=== PATIENT | female | born 1930 | race Caucasian/White ===

== ENCOUNTER 2017-07-01 10:24 | Emergency (ER) | payer OTHER ==
[~2017-07-01] VITALS: Ht 121.9 cm; Wt 39.0 kg
[~2017-07-01 10:24] MED LIST: BIOT50005 PO; CALCCHW9 CHEW; FERR1TAB7 PO; FURO40TA PO; GLUC1CAP9 PO; OCUVTAB4 PO; POTA-163 PO; PROB1CAP PO; SALM1000 PO; SPIRCAP INH; VITA10003 PO; VITA10007 PO; VITA400C2 PO; VITACAP7 PO; [UNRECOGNIZED DRUG - CODE] PO
[2017-07-01 10:32] VITALS: BP 133/60; PULSE 71; RESP 16; TEMP 97.8; O2SAT 96
[2017-07-01] MEDS ORDERED: SPIRCAP INH (11:45)
--- NOTE | 2017-07-01 11:51 | RADRPT ---
EXAM DATE/TIME: 07/01/2017 11:03 [place] COMPARISON: No previous studies available for comparison. INDICATIONS : Fell on left hand . left 4th finger swollen and discolored, havining trouble keeping finger straight, MEDICAL HISTORY : None. SURGICAL HISTORY : left wrist ENCOUNTER: Initial ACUITY: 1 day PAIN SCORE: 10 LOCATION: Left 4th finger FINDINGS: 3 views of the left fourth digit demonstrates focal soft tissue edema overlying the PIP joint where t here is an osseous fragment displaced dorsally consistent with avulsion fracture. There are also kinjal re degenerative changes identified in the PIP joint of the third and fourth digits, severe degenerati ve changes with joint space narrowing within the DIP joints diffusely and severe degenerative changes within the first digit carpometacarpal joint. The bones are diffusely osteopenic. Surgical hardware is seen within the distal radius. CONCLUSION: Severe degenerative changes consistent with osteoarthritis, or erosive. There appears to be an acute avulsion fracture involving the fourth digit at the PIP joint with the osseous fragment displaced flaquito catherine. The donor site is not clearly visualized. Marlena Mae MD on July 01, 2017 at 11:47 Board Certified Radiologist. This report was verified electronically.
--- NOTE | 2017-07-01 12:06 | PD ---
HPI Chief Complaint: Injury Time Seen by Provider: 11:53 Travel History International Travel<30 days: No Contact w/Intl Traveler<30days: No Traveled to known affect area: No History of Present Illness HPI 86-year-old female presents to emergency department after a fall that occurred yesterday. States that her dog ran after a cat and she was pulled to the ground , face first according to patient. States that she had her front teeth and chin , then fell to the ground hitting her left hand. Patient states that as she is here today because her left fourth finger is swollen. Patient denies numb and tingling. States that she is able to move her finger with limited range of motion secondary to mild pain. Denies loss of consciousness, headache, neck pain, back pain. She is not on a blood thinner. She has a history of osteoporosis. PFSH Past Medical History Arthritis: Yes Blood Disorders: No Cancer: No Cardiovascular Problems: No COPD: Yes Diabetes: No Endocrine: No Gastrointestinal Disorders: No Genitourinary: Yes (PROLAPSE WEARS A PESSARY) Hepatitis: No Hiatal Hernia: Yes Hypertension: No Immune Disorder: No Implanted Vascular Access Dvce: No Medical other: No Musculoskeletal: Yes (ARTHRITIES) Neurologic: No Psychiatric: No Reproductive: No Respiratory: Yes (COPD) Thyroid Disease: No Tetanus Vaccination: Unknown Influenza Vaccination: Yes Past Surgical History Abdominal Surgery: No Cardiac Surgery: No Ear Surgery: No Endocrine Surgery: No Eye Surgery: Yes (BILAT CATARACT SX) Genitourinary Surgery: No Joint Replacement: Yes (LEFT KNEE) Neurologic Surgery: No Oral Surgery: Yes (T&A) Pacemaker: No Thoracic Surgery: Yes (LEFT BREAST BIOPSY) Other Surgery: Yes Social History Alcohol Use: No Tobacco Use: No Substance Use: No Allergies-Medications (Allergen,Severity, Reaction): Coded Allergies: No Known Allergies (Verified Adverse Reaction, Unknown, 07/01/17) Reported Meds & Prescriptions Reported Meds & Active Scripts Active Reported Spiriva Handihaler (Tiotropium Inh) 18 Mcg Cap 18 Mcg INH DAILY 1 capsule = 18 mcg Furosemide 40 Mg Tab 40 Mg PO DAILY Review of Systems Except as stated in HPI: all other systems reviewed are Neg Physical Exam Narrative GENERAL: Well-developed well-nourished in no apparent distress, resting comfortably in bed SKIN: Focused skin assessment warm/dry. HEAD: Atraumatic. Normocephalic. Lower lip/chin small area of ecchymosis proximal me 5 mm x 5 mm without skin breaks, teeth are intact, no loosening of teeth. EYES: Pupils equal and round. No scleral icterus. No injection or drainage. ENT: No nasal bleeding or discharge. Mucous membranes pink and moist. NECK: Trachea midline. No JVD. No midline tenderness CARDIOVASCULAR: Regular rate and rhythm. No murmur appreciated. RESPIRATORY: No accessory muscle use. Clear to auscultation. Breath sounds equal bilaterally. GASTROINTESTINAL: Abdomen soft, non-tender, nondistended. Hepatic and splenic margins not palpable. MUSCULOSKELETAL: No obvious deformities. No clubbing. No cyanosis. No edema. Bilateral upper extremities nontender to palpation, no deformities. Left hand, fourth finger- edema over. PE with ecchymosis. Neurovascularly intact, grade 5 out of 5 strength and flexion and extension BACK: No CVA tenderness. No rash. No point tenderness on palpation of the spine. NEUROLOGICAL: Awake and alert. No obvious cranial nerve deficits. Motor grossly within normal limits. Normal speech. PSYCHIATRIC: Appropriate mood and affect; insight and judgment normal. Data Data Last Documented VS Vital Signs Date Time Temp Pulse Resp B/P (MAP) Pulse Ox O2 Delivery O2 Flow Rate FiO2 07/01/17 10:32 97.8 71 16 133/60 (84) 96 Orders Orders Finger ([id number]) (07/01/17 10:35) Support Splint (07/01/17 12:15) Sling Cradle Arm (07/01/17 ) Ed Discharge Order (07/01/17 12:40) MDM Medical Decision Making Medical Screen Exam Complete: Yes Emergency Medical Condition: Yes Differential Diagnosis Left Fourth finger fracture, sprain, strain Narrative Course 86-year-old female presents to emergency department after a fall that occurred yesterday. States that her dog ran after a cat and she was pulled to the ground , face first according to patient. States that she had her front teeth and chin , then fell to the ground hitting her left hand. Patient states that as she is here today because her left fourth finger is swollen. Patient denies numb and tingling. States that she is able to move her finger with limited range of motion secondary to mild pain. Denies loss of consciousness, headache, neck pain, back pain. She is not on a blood thinner. She has a history of osteoporosis. Vital signs stable. Patient and refused CT imaging of the head neck and face. States that she "did not hit the hard". Denies face, neck, back pain. Denies loss of consciousness or headache. We discussed the risks vs benefits of imaging. They understood to look out for signs of brain injury. See physical exam findings under PE for more information. Last Impressions Finger X-Ray 07/01/17 1035 Signed Impressions: Service Date/Time: Saturday, July 01, 2017 11:03 - CONCLUSION: Severe degenerative changes consistent with osteoarthritis, or erosive. There appears to be an acute avulsion fracture involving the fourth digit at the PIP joint with the osseous fragment displaced dorsally. The donor site is not clearly visualized. Marlena Mae MD Pt will be place in a splint. Advised she follow up with hand specialist. Follow up with PCP as well for reevaluation and monitoring. Pt states understanding and will comply. Tylenol for pain. Diagnosis Primary Impression: Avulsion fracture Referrals: Orthopedist Additional Instructions: Use ice or heat for symptom relief. Elevate the joint above the heart to reduce swelling. You may use compression with Franc wrap or similar to reduce swelling. If symptoms persist or worsen, return to the emergency department. Follow up with your primary care physician within 2 days. Disposition: 01 DISCHARGE HOME Condition: Stable Angelina Navarrete Jul 01, 2017 12:06
== END 2017-07-01 13:01 | disposition home or self-care (01) ==
LOC: PHED 10:24 → PHEFT 13:01
DX: S62.615A Displaced fracture of proximal phalanx of left ring finger, initial encounter for closed fracture (principal); M19.90 Unspecified osteoarthritis, unspecified site; J44.9 Chronic obstructive pulmonary disease, unspecified; W01.0XXA Fall on same level from slipping, tripping and stumbling without subsequent striking against object, initial encounter; Y93.K1 Activity, walking an animal; Z79.899 Other long term (current) drug therapy
CPT/HCPCS: 73140; 99283